=== PATIENT | female | born 1965 | race Two or more races ===

== ENCOUNTER → 2017-11-08 | Outpatient (CLI) | payer OTHER ==
[2014-07-28 17:45] VITALS: BP 124/77
[~2017-11-08] MED LIST: ESTR0.3T PO; LEVO25TA4 PO
--- NOTE | 2017-11-09 08:56 | RAD ---
DATE: 11/08/2017 EXAM: DIGITAL SCREEN BILAT W/CAD HISTORY: Screening COMPARISON: 05/26/2014 screening mammogram This study was interpreted with the benefit of Computerized Aided Detection (CAD ). Breast Density: SCATTERED The breast parenchyma shows scattered fibroglandular densities. Breast parenchyma level B. FINDINGS: Parenchymal distribution is stable. No new mass or distortion. No suspicious calcification cluster. IMPRESSION: BI-RADS CATEGORY: 2 BENIGN FINDING(S) RECOMMENDED FOLLOW-UP: PQRS compliance statement: Patient information was entered into a reminder system with a target due date in 1 year for the next mammogram. Mammography is a sensitive method for finding small breast cancers, but it does not detect them all and is not a substitute for careful clinical examination. A negative mammogram does not negate a clinically suspicious finding and should not result in delay in biopsying a clinically suspicious abnormality. "Our facility is accredited by the [employer] Mammography [employer]." CHRISTIANOD
== END | disposition home or self-care (01) ==
LOC: MAMMO 09:40
PROVIDERS: ATTEND Physician Assistant Medical
DX: Z12.31 Encounter for screening mammogram for malignant neoplasm of breast (principal)
CPT/HCPCS: 77067

== ENCOUNTER → 2019-03-07 | Outpatient (CLI) | payer OTHER ==
[2014-07-28 17:45] VITALS: BP 124/77
--- NOTE | 2019-03-07 16:44 | RAD ---
DATE: 03/07/2019 EXAM: DIGITAL SCREEN BILAT W/CAD HISTORY: Routine screening COMPARISON: 06/03/2012, 04/25/2011, 05/26/2014, 11/08/2017 This study was interpreted with the benefit of Computerized Aided Detection (CAD). Breast Density: HETERO The breast parenchyma is heterogenously dense, which could reduce sensitivity of mammography. Breast parenchyma level C. FINDINGS: No new mass, calcifications, or distortion. Asymmetry of the right inner breast posteriorly is stable compared to multiple prior exams. IMPRESSION: Stable BI-RADS CATEGORY: 1 NEGATIVE RECOMMENDED FOLLOW-UP: 12M 12 MONTH FOLLOW-UP PQRS compliance statement: Patient information was entered into a reminder system with a target due date for the next mammogram. Mammography is a sensitive method for finding small breast cancers, but it does not detect them all and is not a substitute for careful clinical examination. A negative mammogram does not negate a clinically suspicious finding and should not result in delay in biopsying a clinically suspicious abnormality. "Our facility is accredited by the [employer] Mammography [employer]."
== END | disposition home or self-care (01) ==
LOC: MAMMO 09:57
PROVIDERS: ATTEND Physician Assistant Medical
DX: Z12.31 Encounter for screening mammogram for malignant neoplasm of breast (principal); N64.89 Other specified disorders of breast
CPT/HCPCS: 77067

== ENCOUNTER → 2020-06-23 | Outpatient (CLI) | payer OTHER ==
[2014-07-28 17:45] VITALS: BP 124/77
--- NOTE | 2020-06-23 09:41 | RAD ---
History: Routine Screening 3-D DIGITAL MAMMOGRAPHY 3-D digital breast tomosynthesis images of both breasts in the CC and MLO projections were performed. Computer aided detection (CAD) was utilized. Previous: 2017 and 2019. The breast tissue is heterogeneously dense, which could obscure detection of small masses (Category C density). Bilateral breast nodularity is stable. There are no new suspicious masses, suspicious micr ocalcifications or areas of architectural distortion. IMPRESSION: Negative mammogram. Patient information was entered into the reminder system with a tar get due date for the next screening mammogram of June 24, 2021. Routine annual screening mammogram in one year advised. BI-RADS Category 2 benign finding Your mammogram demonstrates that you have dense breast tissue, which could hide abnormalities, and if you have other risk factors for breast cancer that have been identified, you might benefit from supp lemental screening tests that may be suggested by your ordering physician. Dense breast tissue, in a nd of itself, is a relatively common condition. This information is not provided to cause undue conc jacquelyn, but rather to raise your awareness and to promote discussion with your physician regarding the p resence of other risk factors, in addition to dense breast tissue. A report of your mammography resul ts will be sent to you and your physician. You should contact your physician if you have any questio ns or concerns regarding this report. A mammogram does not have 100% sensitivity and therefore a negative imaging study should not delay fu rther work up of a clinically suspicious abnormality. "Our facility is accredited by the [employer] Mammography [employer]." Electronically signed by: Cruzito Eddy MD (06/23/2020 9:39 AM) [facility]
== END ==
LOC: MAMMO 07:43
PROVIDERS: ATTEND Family Medicine
DX: Z12.31 Encounter for screening mammogram for malignant neoplasm of breast (principal)
CPT/HCPCS: 77063; 77067

== ENCOUNTER 2021-07-06 17:59 | Emergency (ER) | payer OTHER ==
[2014-07-28 17:45] VITALS: BP 124/77
--- NOTE | 2021-07-06 18:37 | PHYS DOC ---
Past History Past Medical History: Hypothyroid Past Surgical History: Hysterectomy Alcohol Use: None Drug Use: None General Adult HPI: HPI: Patient is a 55 year old female who presents with above hx and complaints constipation. Reportedly pt left from waiting room. Did not notify staff. Review of Systems: Review of Systems: GI: Complaints of constipation per check in. Allergies: Allergies: Allergies Coded Allergies Type Severity Reaction Last Updated Verified No Known Drug Allergies 03/13/14 No Physical Exam: PE: No exam- pt eloped from waiting room. EKG: EKG: [] Radiology/Procedures: Radiology/Procedures: [] Heart Score: C/O Chest Pain: N/A Risk Factors: Risk Factors: DM, Current or recent (<one month) smoker, HTN, HLP, family history of CAD, obesity. Risk Scores: Score 0 - 3: 2.5% MACE over next 6 weeks - Discharge Home Score 4 - 6: 20.3% MACE over next 6 weeks - Admit for Clinical Observation Score 7 - 10: 72.7% MACE over next 6 weeks - Early Invasive Strategies Course & Med Decision Making: Course & Med Decision Making Pertinent Labs and Imaging studies reviewed. (See chart for details) -S-e-e- -C-[id number]- -i-n- -a-n-d- -g-d-[id number]-i-n-g- -[id number]-u-x-[id number]-d-s- [] Koby Disclaimer: Koby Disclaimer: This electronic medical record was generated, in whole or in part, using a voice recognition dictation system. Departure Departure: Referrals: PETROS VELASQUEZ MD (PCP) GATO CARTAGENA MD July 06, 2021 18:37
== END 2021-07-06 19:20 | disposition left against medical advice (07) ==
LOC: ER 17:59
DX: K59.00 Constipation, unspecified (principal); E03.9 Hypothyroidism, unspecified; Z53.21 Procedure and treatment not carried out due to patient leaving prior to being seen by health care provider